=== PATIENT | female | born 1955 | race Caucasian/White ===

== ENCOUNTER → 2024-09-23 | Outpatient (CLI) | payer MEDICARE | LOC: M SLEEP 20:00 | PROVIDERS: ATTEND Physician Assistant | DX: G47.33 Obstructive sleep apnea (adult) (pediatric) (principal); R06.83 Snoring ==

== ENCOUNTER → 2025-01-02 | Outpatient (REF) | payer MEDICARE | LOC: M SFHCCAPE 11:14 | PROVIDERS: ATTEND Physician Assistant Medical | DX: R30.0 Dysuria (principal) ==

== ENCOUNTER → 2025-01-11 | Outpatient (REF) | payer MEDICARE | LOC: M SFHCCLAY 08:18 | PROVIDERS: ATTEND Physician Assistant Medical | DX: I63.9 Cerebral infarction, unspecified (principal); E78.5 Hyperlipidemia, unspecified ==

== ENCOUNTER → 2025-01-16 | Outpatient (REF) | payer MEDICARE ==
[2025-01-16 18:36] LABS: ALT/SGPT 34.0 U/L (7.0-40); AST/SGOT 25.0 U/L (<34); CALCIUM LEVEL 9.9 MG/DL (8.3-10.6); CARBON DIOXIDE LEVEL 29.0 MMOL/L (20-31); CHLORIDE LEVEL 105.0 MMOL/L (98-107); CHOLESTEROL LEVEL 145.0 MG/DL (<200); CHOLESTEROL RISK RATIO 3.14 (<5); CREATININE FOR GFR 0.99 MG/DL (0.55-1.30); GLOMERULAR FILTRATION RATE 61.0 (>39); LDL CHOLESTEROL 81.9 MG/DL (<100); NON-HDL-C 98.9 MG/DL; POTASSIUM SERUM 4.8 MMOL/L (3.5-5.1); SODIUM LEVEL 140.0 MMOL/L (136-145); TRIGLYCERIDES LEVEL 85.0 MG/DL (<150)
[2025-01-16 18:37] LABS: FREE T4 1.17 NG/DL (0.89-1.76)
== END ==
LOC: M LABDRAWC 17:10
PROVIDERS: ATTEND Physician Assistant Medical
DX: I63.9 Cerebral infarction, unspecified (principal); E78.5 Hyperlipidemia, unspecified